=== PATIENT | female | born 1940 | race Caucasian/White ===

== ENCOUNTER → 2017-04-29 | Outpatient (CLI) | payer MEDICARE ==
[2017-04-29 15:06] LABS: Basophils # (A) 0.1 k/uL (0-0.2); Basophils % (A) 1 %; Eosinophils # (A) 0.3 k/uL (0-0.7); Eosinophils % (A) 4 %; HCT 42.3 % (34.0-46.0); Lymphocytes # (A) 1.3 k/uL (1.0-4.8); Lymphocytes % (A) 16 %; MCH 29.9 pg (25.0-35.0); MCHC 30.8 g/dL (31.0-37.0); Mean Platelet Volume 6.9; Monocytes # (A) 0.6 k/uL (0-1.0); Monocytes % (A) 7 %; Neutrophils # (A) 5.4 k/uL (1.3-7.7); Neutrophils % (A) 70 %; Platelet Count 340 k/uL (150-450); RBC 4.36 m/uL (3.80-5.40); RDW 12.7 % (11.5-15.5); WBC 7.8 k/uL (3.8-10.6)
[2017-04-29 15:14] LABS: ALT 22 U/L (9-52); AST 21 U/L (14-36); Albumin 4.1 g/dL (3.5-5.0); Alkaline Phosphatase 106 U/L (38-126); Anion Gap 10 mmol/L; Blood Urea Nitrogen 17 mg/dL (7-17); Calcium 9.5 mg/dL (8.4-10.2); Carbon Dioxide 29 mmol/L (22-30); Chloride 100 mmol/L (98-107); Glucose 97 mg/dL (74-99); Potassium 4.7 mmol/L (3.5-5.1); Sodium 139 mmol/L (137-145); Total Bilirubin 0.5 mg/dL (0.2-1.3)
== END | disposition home or self-care (01) ==
LOC: LABWHC1 13:51
PROVIDERS: ATTEND Internal Medicine
DX: R53.83 Other fatigue (principal); R53.1 Weakness
CPT/HCPCS: 36415; 80053; 84439; 84443; 85025

== ENCOUNTER → 2017-07-15 | Outpatient (CLI) | payer MEDICARE ==
--- NOTE | 2017-07-15 14:37 | US ---
EXAMINATION TYPE: US kidneys/renal and bladder DATE OF EXAM: 07/15/2017 COMPARISON: NONE CLINICAL HISTORY: R31.9 Hematuria. lt flank pain EXAM MEASUREMENTS: Right Kidney: 9.1 x 4.4 x 5.8 cm Left Kidney: 9.2 x 5.5 x 6.3 cm Exam limited by bowel gas. Right Kidney: No hydronephrosis, no masses seen laterally. Left Kidney: There may be some mild separation of the renal pelvis, no stones bilaterally. Bladder: wnl Bilateral Jets seen: Yes No nephrolithiasis is seen. No masses are identified. The urinary bladder is anechoic. Bilateral ureteral jets are seen. Cortical medullary differentiation is maintained. IMPRESSION: Question some mild pelvic caliectasis on the left.
== END | disposition home or self-care (01) ==
LOC: RADUSWWP 13:34
PROVIDERS: ATTEND Internal Medicine Critical Care Medicine
DX: R31.9 Hematuria, unspecified (principal)
CPT/HCPCS: 76770

== ENCOUNTER → 2017-08-19 | Outpatient (CLI) | payer MEDICARE ==
--- NOTE | 2017-08-19 10:58 | US ---
EXAMINATION TYPE: US venous doppler duplex LE LT DATE OF EXAM: 08/19/2017 10:13 AM COMPARISON: NONE CLINICAL HISTORY: 77-year-old female M79.605 Pain in lower limb. SIDE PERFORMED: Left TECHNIQUE: The lower extremity deep venous system is examined utilizing real time linear array sonog analisa with graded compression, doppler sonography and color-flow sonography. FINDINGS: VESSELS IMAGED: External Iliac Vein (EIV) Common Femoral Vein Deep Femoral Vein Greater Saphenous Vein * Femoral Vein Popliteal Vein Proximal Calf Veins (* superficial vessels) Left Leg: Negative for DVT IMPRESSION: No evidence for DVT within the left lower extremity imaged from the groin to the upper calf. Preliminary results called to ASHU Graham at 10:25
== END | disposition home or self-care (01) ==
LOC: RADUSWWP 09:47
PROVIDERS: ATTEND Family Medicine
DX: M79.605 Pain in left leg (principal)

== ENCOUNTER → 2018-08-26 | Outpatient (CLI) | payer MEDICARE ==
[2018-08-26 16:21] LABS: Protein, Total 6.3 g/dL (6.2-8.2)
[2018-08-26 16:47] LABS: African American GFR (CKD) 94.8 (60.0-200.0); Anion Gap 8.4 mmol/L (4.00-12.00); BUN/Creat Ratio 24.29 Ratio (12.00-20.00); C Reactive Protein 0.6 mg/dL (0.0-0.8); Calcium 9.4 mg/dL (8.7-10.3); Carbon Dioxide 28.6 mmol/L (21.6-31.8); Potassium 4.9 mmol/L (3.5-5.5)
[2018-08-26 17:51] LABS: Hemoglobin A1C 5.5 % (4.0-6.0)
[2018-08-28 09:55] LABS: Albumin 3.65 g/dL (3.80-4.90); Gamma Globulin 0.74 g/dL (0.70-1.50)
== END | disposition home or self-care (01) ==
LOC: LABWHC1 09:21
PROVIDERS: ATTEND Psychiatry & Neurology Neurology
DX: M35.00 Sjogren syndrome, unspecified (principal); E87.6 Hypokalemia; G62.9 Polyneuropathy, unspecified; R53.1 Weakness
CPT/HCPCS: 36415; 80048; 82550; 82607; 83036; 84165; 85652; 86140

== ENCOUNTER → 2018-12-29 | Outpatient (CLI) | payer MEDICARE | END | disposition home or self-care (01) | LOC: CPPFTMAIN 11:49 | PROVIDERS: ATTEND Internal Medicine Critical Care Medicine | DX: J45.909 Unspecified asthma, uncomplicated (principal) | CPT/HCPCS: 94060; 94726; 94729 ==

== ENCOUNTER 2019-02-02 09:28 | Emergency (ER) | payer MEDICARE ==
[2019-02-02 09:41] VITALS: RESP 18; TEMP 98
[2019-02-02] MEDS ORDERED: MECLIZINE 12.5 MG TAB PO STA (10:15)
[2019-02-02] MEDS ORDERED: SODIUM CHLORIDE 0.9% 1,000 ML IV STA (10:15)
[2019-02-02] MEDS ORDERED: METOCLOPRAMIDE 5 MG/ML 2 ML VIAL IVP STA (10:16)
--- NOTE | 2019-02-02 10:25 | ED ---
Dizziness HPI - General Chief Complaint: Dizziness Stated Complaint: dizziness Time Seen by Provider: 02/02/19 09:51 Source: patient, RN notes reviewed Mode of arrival: ambulatory Limitations: no limitations - History of Present Illness Initial Comments: 78-year-old female presents emergency Department with chief complaint of abdominal pain, dizziness. She states this has been ongoing for a while. Patient states that she presents sick is a dizziness worsen. She does state she feels more lightheaded feels that she didn't pass out but states it is worse with movement. Patient denies any current chest pain or shortness breath she states that she's been very constipated and this is her issue she states she had a little more dizzy after she cannot have bowel movement. She has been taking senna at home for constipation. No fevers or chills no dysuria no hematuria no focal weakness. States she was started on Ambien approximate one month ago. - Related Data Home Medications Medication Instructions Recorded Confirmed ALPRAZolam [Xanax] 0.5 mg PO TID PRN 01/06/15 02/02/19 Albuterol Sulfate [Ventolin HFA] 2 puff INHALATION RT-QID PRN 02/02/19 02/02/19 Budesonide/Formoterol Fumarate 2 puff INHALATION RT-BID 02/02/19 02/02/19 [Symbicort 160-4.5 Mcg Inhaler] Latanoprost Ophth [Xalatan 0.005%] 1 drop RIGHT EYE HS 02/02/19 02/02/19 Montelukast [Singulair] 10 mg PO HS 02/02/19 02/02/19 Propylene Glycol/Peg 400/Pf 1 drop BOTH EYES TID 02/02/19 02/02/19 [Systane 0.3-0.4% Eye Drops] Sennosides [Senna] 8.6 mg PO HS 02/02/19 02/02/19 Vit C/E/Zn/Coppr/Lutein/Zeaxan 1 cap PO BID 02/02/19 02/02/19 [Preservision Areds 2 Softgel] Zolpidem Tartrate [Zolpidem 12.5 mg PO HS 02/02/19 02/02/19 Tartrate ER] buPROPion HCL [Wellbutrin SR] 150 mg PO DAILY 02/02/19 02/02/19 Previous Rx's Medication Instructions Recorded Meclizine [Antivert] 25 mg PO TID PRN #15 tab 02/02/19 Allergies Allergy/AdvReac Type Severity Reaction Status Date / Time egg Allergy Anaphylaxis Verified 02/02/19 12:41 Review of Systems ROS Statement: Those systems with pertinent positive or pertinent negative responses have been documented in the HPI. ROS Other: All systems not noted in ROS Statement are negative. Past Medical History Past Medical History: Asthma, COPD History of Any Multi-Drug Resistant Organisms: None Reported Past Surgical History: Orthopedic Surgery Past Psychological History: No Psychological Hx Reported Smoking Status: Never smoker Past Alcohol Use History: Occasional Past Drug Use History: None Reported General Exam Limitations: no limitations General appearance: alert, in no apparent distress Head exam: Present: atraumatic, normocephalic, normal inspection Eye exam: Present: normal appearance, PERRL, EOMI. Absent: scleral icterus, conjunctival injection, periorbital swelling ENT exam: Present: normal exam, normal oropharynx, mucous membranes moist, TM's normal bilaterally Neck exam: Present: normal inspection, full ROM. Absent: tenderness, meningismus, lymphadenopathy Respiratory exam: Present: normal lung sounds bilaterally. Absent: respiratory distress, wheezes, rales, rhonchi, stridor Cardiovascular Exam: Present: regular rate, normal rhythm, normal heart sounds. Absent: systolic murmur, diastolic murmur, rubs, gallop, clicks GI/Abdominal exam: Present: soft, tenderness (Mild diffuse), normal bowel sounds. Absent: distended, guarding, rebound, rigid Neurological exam: Present: alert, oriented X3, CN II-XII intact, reflexes normal. Absent: motor sensory deficit Skin exam: Present: warm, dry, intact, normal color. Absent: rash Course Vital Signs 02/02/19 02/02/19 02/02/19 09:37 10:51 12:31 Temperature 98 F Pulse Rate 75 81 92 Respiratory 18 18 18 Rate Blood Pressure 154/79 167/72 149/85 O2 Sat by Pulse 98 96 99 Oximetry - Reevaluation(s) Reevaluation #1: 02/02/19 12:52 Patient updated on results, patient states she feels improved. Patient will be discharged. Medical Decision Making - Medical Decision Making Labs are unremarkable, EKG unremarkable. CT of the brain does not show an acute abnormality. Patient's in's is has improved. This may be related to mild dehydration versus mild vertigo. Patient does have moderate constipation x-ray patient will be discharged advised to use [id number] enema or magnesium citrate. - Lab Data Result diagrams: 02/02/19 10:40 02/02/19 10:40 Lab Results 02/02/19 02/02/19 02/02/19 Range/Units 10:40 10:40 10:40 WBC 7.7 (3.8-10.6) k/uL RBC 4.21 (3.80-5.40) m/uL Hgb 13.1 (11.4-16.0) gm/dL Hct 40.4 (34.0-46.0) % MCV 96.1 (80.0-100.0) fL MCH 31.2 (25.0-35.0) pg MCHC 32.4 (31.0-37.0) g/dL RDW 12.6 (11.5-15.5) % Plt Count 221 (150-450) k/uL Neutrophils % 73 % Lymphocytes % 16 % Monocytes % 6 % Eosinophils % 4 % Basophils % 0 % Neutrophils # 5.6 (1.3-7.7) k/uL Lymphocytes # 1.2 (1.0-4.8) k/uL Monocytes # 0.5 (0-1.0) k/uL Eosinophils # 0.3 (0-0.7) k/uL Basophils # 0.0 (0-0.2) k/uL Sodium 141 (137-145) mmol/L Potassium 4.2 (3.5-5.1) mmol/L Chloride 108 H (98-107) mmol/L Carbon Dioxide 27 (22-30) mmol/L Anion Gap 6 mmol/L BUN 15 (7-17) mg/dL Creatinine 0.65 (0.52-1.04) mg/dL Est GFR (CKD-EPI)AfAm >90 (>60 ml/min/1.73 sqM) Est GFR (CKD-EPI)NonAf 84 (>60 ml/min/1.73 sqM) Glucose 88 (74-99) mg/dL Calcium 9.3 (8.4-10.2) mg/dL Total Bilirubin 0.5 (0.2-1.3) mg/dL AST 18 (14-36) U/L ALT 19 (9-52) U/L Alkaline Phosphatase 86 (38-126) U/L Troponin I <0.012 (0.000-0.034) ng/mL Total Protein 6.5 (6.3-8.2) g/dL Albumin 3.9 (3.5-5.0) g/dL Urine Color Urine Appearance (Clear) Urine pH (5.0-8.0) Ur Specific [place] (1.001-1.035) Urine Protein (Negative) Urine Glucose (UA) (Negative) Urine Ketones (Negative) Urine Blood (Negative) Urine Nitrite (Negative) Urine Bilirubin (Negative) Urine Urobilinogen (<2.0) mg/dL Ur Leukocyte Esterase (Negative) Urine RBC (0-5) /hpf Ur Squamous Epith Cells (0-4) /hpf Urine Mucus (None) /hpf 02/02/19 Range/Units 12:30 WBC (3.8-10.6) k/uL RBC (3.80-5.40) m/uL Hgb (11.4-16.0) gm/dL Hct (34.0-46.0) % MCV (80.0-100.0) fL MCH (25.0-35.0) pg MCHC (31.0-37.0) g/dL RDW (11.5-15.5) % Plt Count (150-450) k/uL Neutrophils % % Lymphocytes % % Monocytes % % Eosinophils % % Basophils % % Neutrophils # (1.3-7.7) k/uL Lymphocytes # (1.0-4.8) k/uL Monocytes # (0-1.0) k/uL Eosinophils # (0-0.7) k/uL Basophils # (0-0.2) k/uL Sodium (137-145) mmol/L Potassium (3.5-5.1) mmol/L Chloride (98-107) mmol/L Carbon Dioxide (22-30) mmol/L Anion Gap mmol/L BUN (7-17) mg/dL Creatinine (0.52-1.04) mg/dL Est GFR (CKD-EPI)AfAm (>60 ml/min/1.73 sqM) Est GFR (CKD-EPI)NonAf (>60 ml/min/1.73 sqM) Glucose (74-99) mg/dL Calcium (8.4-10.2) mg/dL Total Bilirubin (0.2-1.3) mg/dL AST (14-36) U/L ALT (9-52) U/L Alkaline Phosphatase (38-126) U/L Troponin I (0.000-0.034) ng/mL Total Protein (6.3-8.2) g/dL Albumin (3.5-5.0) g/dL Urine Color Light Yellow Urine Appearance Clear (Clear) Urine pH 6.0 (5.0-8.0) Ur Specific [place] 1.005 (1.001-1.035) Urine Protein Negative (Negative) Urine Glucose (UA) Negative (Negative) Urine Ketones Trace H (Negative) Urine Blood Trace H (Negative) Urine Nitrite Negative (Negative) Urine Bilirubin Negative (Negative) Urine Urobilinogen <2.0 (<2.0) mg/dL Ur Leukocyte Esterase Negative (Negative) Urine RBC 1 (0-5) /hpf Ur Squamous Epith Cells <1 (0-4) /hpf Urine Mucus Rare H (None) /hpf Disposition Clinical Impression: Dizziness, Constipation Disposition: HOME SELF-CARE Condition: Stable Instructions (If sedation given, give patient instructions): Dizziness (ED) Additional Instructions: Please return to the Emergency Department if symptoms worsen or any other concerns. Prescriptions: Meclizine [Antivert] 25 mg PO TID PRN #15 tab PRN Reason: Vertigo Is patient prescribed a controlled substance at d/c from ED?: No Referrals: Raheel Renee DO [Primary Care Provider] - 1-2 days Time of Disposition: 12:54
[2019-02-02 11:03] LABS: Basophils % (A) 0 %; Eosinophils # (A) 0.3 k/uL (0-0.7); Eosinophils % (A) 4 %; HCT 40.4 % (34.0-46.0); HGB 13.1 gm/dL (11.4-16.0); Lymphocytes # (A) 1.2 k/uL (1.0-4.8); Lymphocytes % (A) 16 %; MCH 31.2 pg (25.0-35.0); MCHC 32.4 g/dL (31.0-37.0); MCV 96.1 fL (80.0-100.0); Mean Platelet Volume 6.1; Monocytes # (A) 0.5 k/uL (0-1.0); Monocytes % (A) 6 %; Neutrophils # (A) 5.6 k/uL (1.3-7.7); Neutrophils % (A) 73 %; Platelet Count 221 k/uL (150-450); RBC 4.21 m/uL (3.80-5.40); RDW 12.6 % (11.5-15.5); WBC 7.7 k/uL (3.8-10.6)
[2019-02-02 11:12] LABS: ALT 19 U/L (9-52); AST 18 U/L (14-36); African American GFR (CKD) >90 (>60 ml/min/1.73 sqM); Albumin 3.9 g/dL (3.5-5.0); Alkaline Phosphatase 86 U/L (38-126); Anion Gap 6 mmol/L; Blood Urea Nitrogen 15 mg/dL (7-17); Calcium 9.3 mg/dL (8.4-10.2); Carbon Dioxide 27 mmol/L (22-30); Chloride 108 mmol/L (98-107); Glucose 88 mg/dL (74-99); Non-African American GFR(CKD) 84 (>60 ml/min/1.73 sqM); Potassium 4.2 mmol/L (3.5-5.1); Sodium 141 mmol/L (137-145); Total Bilirubin 0.5 mg/dL (0.2-1.3); Total Protein 6.5 g/dL (6.3-8.2)
--- NOTE | 2019-02-02 11:19 | CT ---
EXAMINATION TYPE: CT brain wo con DATE OF EXAM: 02/02/2019 HISTORY: Dizziness. CT DLP: 1099.4 mGycm. Automated Exposure Control for Dose Reduction was Utilized. TECHNIQUE: CT scan of the head is performed without contrast. COMPARISON: None. FINDINGS: There is no acute intracranial hemorrhage or midline shift identified. There is diffuse v entricular and sulcal prominence consistent with diffuse age-related cerebral atrophy. There is low- attenuation in the periventricular white matter consistent with chronic small vessel ischemic change. The globes are intact and the visualized sinuses are clear. Nasal septum slightly deviated to righ t of midline. No suspicious opacification mastoid air cells. IMPRESSION: No acute intracranial hemorrhage or midline shift. There is mild diffuse age-related ce rebral atrophy and mild to moderate chronic small vessel ischemic change noted.
--- NOTE | 2019-02-02 11:20 | XR ---
EXAMINATION TYPE: XR KUB DATE OF EXAM: 02/02/2019 11:12 AM CLINICAL HISTORY: Constipation and pain. TECHNIQUE: Two Upright KUB images of the abdomen are obtained. COMPARISON: None. FINDINGS: Scattered gas is seen in non-distended stomach and small bowel loops. Gas there is seen in non-distended colon. Few right lower quadrant air-fluid levels are seen which is nonspecific. There i s no visceromegaly, pneumoperitoneum, or abnormal calcification appreciated. The lung bases are clear . Dextroconvex scoliosis centered at L3-L4 level. Fairly moderate axial joint space loss both hips. IMPRESSION: Overall nonspecific strongly favor nonobstructive bowel gas pattern.
[2019-02-02 12:31] VITALS: BP 149/85; PULSE 92
[2019-02-02 12:42] LABS: Appearance,Urine Clear (Clear); Bilirubin,Urine Negative (Negative); Blood,Urine Trace (Negative); Color,Urine Light Yellow; Glucose,Urine (UA) Negative (Negative); Ketones,Urine Trace (Negative); Leukocyte Esterase,Urine Negative (Negative); Mucus,Urine Rare /hpf; Nitrite,Urine Negative (Negative); Protein,Urine Negative (Negative); RBC,Urine 1 /hpf (0-5); Specific Gravity,Urine 1.005 (1.001-1.035); Squamous Epithelial Cell,Urine <1 /hpf (0-4); Urobilinogen,Urine <2.0 mg/dL (<2.0)
== END 2019-02-02 13:05 | disposition home or self-care (01) ==
LOC: EC 09:28
DX: K59.00 Constipation, unspecified (principal); R42 Dizziness and giddiness; J44.9 Chronic obstructive pulmonary disease, unspecified; Z79.51 Long term (current) use of inhaled steroids; Z79.899 Other long term (current) drug therapy; Z91.012 Allergy to eggs
CPT/HCPCS: 36415; 93005; 80053; 84484; 85025; 81001; 74018; 70450; 99284; 96374; 96361; J2765

== ENCOUNTER → 2019-10-08 | Outpatient (CLI) | payer MEDICARE, BC ==
[2019-10-08 10:24] LABS: Basophils # (A) 0.1 k/uL (0-0.2); Basophils % (A) 1 %; Eosinophils # (A) 0.4 k/uL (0-0.7); Eosinophils % (A) 7 %; HCT 41.5 % (34.0-46.0); HGB 12.9 gm/dL (11.4-16.0); Hypochromasia Slight; Lymphocytes # (A) 1.1 k/uL (1.0-4.8); Lymphocytes % (A) 21 %; MCH 31.1 pg (25.0-35.0); MCHC 31.2 g/dL (31.0-37.0); MCV 99.8 fL (80.0-100.0); Mean Platelet Volume 7.3; Monocytes # (A) 0.4 k/uL (0-1.0); Monocytes % (A) 7 %; Neutrophils # (A) 3.1 k/uL (1.3-7.7); Neutrophils % (A) 61 %; Platelet Count 253 k/uL (150-450); RBC 4.16 m/uL (3.80-5.40); RDW 12.5 % (11.5-15.5)
[2019-10-08 16:32] LABS: African American GFR (CKD) 80.1 (60.0-200.0); Albumin 4.2 g/dL (3.80-4.90); Albumin/Globulin Ratio 2.1 (1.60-3.17); Anion Gap 5.7 mmol/L (4.00-12.00); Calcium 9.2 mg/dL (8.7-10.3); Carbon Dioxide 28.3 mmol/L (21.6-31.8); Chol/HDL Ratio 2.29; LDL Cholesterol,Calculated 92.6 mg/dL (0.0-131.0); Non-African American GFR(CKD) 69.1 (60.0-200.0); Potassium 4.5 mmol/L (3.5-5.5); Total Bilirubin 0.5 mg/dL (0.3-1.2); Total Protein 6.2 g/dL (6.2-8.2); VLDL Calculation 10.4 mg/dL (5.00-40.00)
[2019-10-08 17:45] LABS: T4, Free (Free Thyroxine) 0.8 ng/dL (0.80-1.80)
[2019-10-08 18:59] LABS: Hemoglobin A1C 5.2 % (4.0-6.0)
== END | disposition home or self-care (01) ==
LOC: LABWHC1 08:57
PROVIDERS: ATTEND Internal Medicine Critical Care Medicine
DX: Z00.00 Encounter for general adult medical examination without abnormal findings (principal); F41.9 Anxiety disorder, unspecified; J45.909 Unspecified asthma, uncomplicated; F34.1 Dysthymic disorder; M35.00 Sjogren syndrome, unspecified; M79.7 Fibromyalgia; K59.00 Constipation, unspecified; G43.909 Migraine, unspecified, not intractable, without status migrainosus
CPT/HCPCS: 36415; 80053; 80061; 82306; 83036; 84439; 84443; 85025

== ENCOUNTER → 2020-01-08 | Day surgery (SDC) | payer BC, MEDICARE ==
[2020-01-06 15:15] VITALS: BMI 23.3
[~2020-01-08] MED LIST: LACTATED RINGERS 1,000 ML IV SCH; LIDOCAINE 1% (10MG/ML) FOR IV START INTRADERMA ONE; LIDOCAINE 1% INJ 10MG/ML (20 ML MDV) ONE; PROPOFOL 10 MG/ML 20 ML VIAL IV ONE
[2020-01-08 10:45] VITALS: TEMP 97.1
--- NOTE | 2020-01-08 11:52 | P.PCN ---
Date of Procedure: 01/08/20 Procedure(s) Performed: BRIEF HISTORY: Patient is a 79-year-old pleasant male scheduled for an elective colonoscopy as a part of evaluation of intermittent rectal bleeding for the last few weeks duration. PROCEDURE PERFORMED: Colonoscopy. PREOPERATIVE DIAGNOSIS: Rectal bleeding.. IV sedation per Anesthesia. PROCEDURE: After informed consent was obtained, the patient, was brought into the endoscopy unit. IV sedation was administered by Anesthesia under continuous monitoring. Digital rectal examination was normal. Initially the Olympus CF-160 flexible video colonoscope was then inserted in the rectum, gradually advanced into the cecum without any difficulty. Careful examination was performed as the scope was gradually being withdrawn. Ileocecal valve and the appendiceal orifice were visualized and appeared normal. Prep was excellent. Mucosa of the cecum, ascending colon, transverse colon, descending colon, sigmoid colon, and rectum appeared normal. Retroflexion was performed in the rectum and grade 2 internal hemorrhoids were seen. The patient tolerated the procedure well. IMPRESSION: Normal-appearing colon from rectum to cecum with no evidence of colorectal neoplasia . Small internal hemorrhoids. RECOMMENDATIONS: Findings of this examination were discussed with the patient as well as her family. She was advised to be a high-fiber diet and take fiber supplements a regular basis and avoid straining and constipation.
[2020-01-08 11:57] VITALS: RESP 17
[2020-01-08 12:24] VITALS: BP 131/78; PULSE 86
== END | disposition home or self-care (01) ==
LOC: ORWHC2ENDO 10:16
PROVIDERS: ATTEND Internal Medicine Gastroenterology
DX: K64.1 Second degree hemorrhoids (principal); K62.5 Hemorrhage of anus and rectum; Z79.899 Other long term (current) drug therapy; J44.9 Chronic obstructive pulmonary disease, unspecified; Z79.51 Long term (current) use of inhaled steroids; Z91.012 Allergy to eggs
CPT/HCPCS: 45378; J2001; J2704

== ENCOUNTER 2021-06-26 09:26 | Inpatient (IN) | payer MEDICARE ==
--- NOTE | 2021-06-26 14:11 | CT ---
EXAMINATION TYPE: CT brain wo con DATE OF EXAM: 06/26/2021 COMPARISON: 02/02/2019 HISTORY: Left-sided weakness CT DLP: 1068.4 mGycm Automated exposure control for dose reduction was used. FINDINGS: There is no acute intracranial hemorrhage or midline shift identified. There is generalized degenerat [place] change. There is low-attenuation in the periventricular white matter consistent with chronic smal l vessel ischemic change. Tiny hypodensity within the left basal ganglia compatible with remote lacun ar infarct. The globes are intact and the visualized sinuses are clear. Nasal septum slightly deviated to right o f midline. No suspicious opacification mastoid air cells. IMPRESSION: NO ACUTE INTRACRANIAL HEMORRHAGE OR MASS EFFECT.
[2021-06-26 14:12] LABS: Albumin 3.9 g/dL (3.5-5.0); Calcium 8.9 mg/dL (8.4-10.2); Magnesium 1.9 mg/dL (1.6-2.3); Potassium 4.5 mmol/L (3.5-5.1); Total Bilirubin 0.7 mg/dL (0.2-1.3); Total Protein 6.8 g/dL (6.3-8.2)
--- NOTE | 2021-06-26 14:12 | CT ---
EXAMINATION TYPE: CT angio head neck DATE OF EXAM: 06/26/2021 COMPARISON: None HISTORY: Lt sided weakness CONTRAST: Performed with IV Contrast, patient injected with 100 mL of Isovue 300. Combination Contrast CTA cervical carotids and [place] CTA cervical carotids with 3-D recons truction Contrast CTA of the cervical carotids was performed 3-D reconstruction imaging obtained at a separate workstation. Right carotid system: Mild plaque is seen of the right common carotid artery. There is mild plaque a lso noted at the carotid bulb and proximal ICA. No significant diameter reduction. ECA is patent. Right vertebral artery appears unremarkable. Left carotid system: Mild plaque is seen of the left common carotid artery. There is mild plaque als o noted at the carotid bulb and proximal ICA. No significant diameter reduction. ECA is patent. Lef t vertebral artery appears unremarkable. IMPRESSION: 1. No significant diameter reduction to account for the patient's symptoms. CTA [place] with 3-D reconstruction Contrast CTA of the [place] was performed 3-D reconstruction imaging obtained at a separate workstation. Vertebrobasilar system as well as intracranial portions of the internal carotid arteries and their [place] tributaries are patent. I do not see evidence for sizable aneurysm or vascular malformation. Pl ease note MRI provides greater sensitivity and specificity. Visualized brain appears grossly unremar kable. IMPRESSION: 1. No significant abnormality. NASCET criteria was used in interpretation of this exam?
[2021-06-26 14:33] LABS: Basophils # (A) 0.1 k/uL (0-0.2); Basophils % (A) 1 %; Eosinophils # (A) 0.4 k/uL (0-0.7); Eosinophils % (A) 5 %; HCT 39.9 % (34.0-46.0); HGB 13.3 gm/dL (11.4-16.0); Lymphocytes # (A) 1.1 k/uL (1.0-4.8); Lymphocytes % (A) 15 %; MCH 32.9 pg (25.0-35.0); MCHC 33.2 g/dL (31.0-37.0); Mean Platelet Volume 7.3; Monocytes # (A) 0.5 k/uL (0-1.0); Monocytes % (A) 7 %; Neutrophils # (A) 5.1 k/uL (1.3-7.7); Neutrophils % (A) 70 %; Platelet Count 236 k/uL (150-450); RBC 4.03 m/uL (3.80-5.40); RDW 12.5 % (11.5-15.5); WBC 7.3 k/uL (3.8-10.6)
--- NOTE | 2021-06-26 14:48 | ED ---
General Adult HPI - General Time Seen by Provider: 06/26/21 14:44 - History of Present Illness Initial comments: Patient was initially seen and evaluated via paper chart due to unexpected EMR down time. Please see paper chart for further details regards to the history and physical. Briefly, patient is a 80-year-old female presents to the emergency department with strokelike symptoms started yesterday. Her symptoms are left-sided facial paresthesias and left lower extremity weakness. Patient is outside the alteplase window given that her symptoms began yesterday. Her NIH score is 24 lower extremity drift and slight facial sensory abnormalities. CVA workup was initiated. - Related Data Home Medications Medication Instructions Recorded Confirmed ALPRAZolam [Xanax] 0.5 mg PO TID PRN 01/06/15 01/06/20 Albuterol Sulfate [Ventolin HFA] 2 puff INHALATION RT-QID PRN 02/02/19 01/06/20 Budesonide/Formoterol Fumarate 2 puff INHALATION RT-BID 02/02/19 01/06/20 [Symbicort 160-4.5 Mcg Inhaler] Montelukast [Singulair] 10 mg PO HS 02/02/19 01/06/20 Propylene Glycol/Peg 400/Pf 1 drop BOTH EYES TID 02/02/19 01/06/20 [Systane 0.3-0.4% Eye Drops] Sennosides [Senna] 8.6 mg PO HS 02/02/19 01/06/20 Vit C/E/Zn/Coppr/Lutein/Zeaxan 1 cap PO BID 02/02/19 01/06/20 [Preservision Areds 2 Softgel] Zolpidem Tartrate [Zolpidem 12.5 mg PO HS 02/02/19 01/06/20 Tartrate ER] buPROPion HCL [Wellbutrin SR] 150 mg PO DAILY 02/02/19 01/06/20 Latanoprostene Bunod [Vyzulta] 5 ml RIGHT EYE DAILY 01/06/20 01/06/20 Previous Rx's Medication Instructions Recorded Meclizine [Antivert] 25 mg PO TID PRN #15 tab 02/02/19 Allergies Allergy/AdvReac Type Severity Reaction Status Date / Time egg Allergy Anaphylaxis Verified 06/26/21 15:09 Review of Systems ROS Statement: Those systems with pertinent positive or pertinent negative responses have been documented in the HPI. ROS Other: All systems not noted in ROS Statement are negative. Past Medical History Past Medical History: Asthma, COPD, Eye Disorder Additional Past Medical History / Comment(s): INCREASED PRESSURE RT EYE. HAD SOME RECTAL BLEEDING ABOUT 1 MONTH AGO, CHRONIC CONSTIPATON History of Any Multi-Drug Resistant Organisms: None Reported Past Surgical History: Orthopedic Surgery Additional Past Surgical History / Comment(s): RT SHOULDER SX. COLONOSCOPY. RT EYE MACULAR FOLD SX Past Anesthesia/Blood Transfusion Reactions: No Reported Reaction Smoking Status: Never smoker - Past Family History Mother Family Medical History: No Reported History Course Vital Signs 06/26/21 15:00 Temperature 98.0 F Pulse Rate 75 Respiratory 20 Rate Blood Pressure 183/87 O2 Sat by Pulse 97 Oximetry Medical Decision Making - Medical Decision Making Laboratory evaluation obtained. CBC, coag panel, metabolic panel is unremarkable. Computed tomography scan of the brain shows no acute processes. CT angiography of the head and neck shows no large vessel occlusion. Patient had a thrombectomy candidate. Patient given aspirin will be admitted with neurology consultation. Patient be admitted to [facility] [facility]. - Lab Data Result diagrams: 06/26/21 10:37 06/26/21 10:37 Lab Results 06/26/21 06/26/21 06/26/21 Range/Units 10:37 10:37 10:37 WBC 7.3 (3.8-10.6) k/uL RBC 4.03 (3.80-5.40) m/uL Hgb 13.3 (11.4-16.0) gm/dL Hct 39.9 (34.0-46.0) % MCV 99.0 (80.0-100.0) fL MCH 32.9 (25.0-35.0) pg MCHC 33.2 (31.0-37.0) g/dL RDW 12.5 (11.5-15.5) % Plt Count 236 (150-450) k/uL MPV 7.3 Neutrophils % 70 % Lymphocytes % 15 % Monocytes % 7 % Eosinophils % 5 % Basophils % 1 % Neutrophils # 5.1 (1.3-7.7) k/uL Lymphocytes # 1.1 (1.0-4.8) k/uL Monocytes # 0.5 (0-1.0) k/uL Eosinophils # 0.4 (0-0.7) k/uL Basophils # 0.1 (0-0.2) k/uL PT 10.9 (9.0-12.0) sec INR 1.0 (<1.2) APTT 23.8 (22.0-30.0) sec Sodium 140 (137-145) mmol/L Potassium 4.5 (3.5-5.1) mmol/L Chloride 108 H (98-107) mmol/L Carbon Dioxide 25 (22-30) mmol/L Anion Gap 7 mmol/L BUN 18 H (7-17) mg/dL Creatinine 0.74 (0.52-1.04) mg/dL Est GFR (CKD-EPI)AfAm 88 (>60 ml/min/1.73 sqM) Est GFR (CKD-EPI)NonAf 76 (>60 ml/min/1.73 sqM) Glucose 103 H (74-99) mg/dL Calcium 8.9 (8.4-10.2) mg/dL Magnesium 1.9 (1.6-2.3) mg/dL Total Bilirubin 0.7 (0.2-1.3) mg/dL AST 28 (14-36) U/L ALT 18 (4-34) U/L Alkaline Phosphatase 86 (38-126) U/L Total Protein 6.8 (6.3-8.2) g/dL Albumin 3.9 (3.5-5.0) g/dL Disposition Clinical Impression: Cerebrovascular accident (CVA) Disposition: ADMITTED IP TO THIS HOSP Condition: Fair Referrals: Raheel Renee DO [Primary Care Provider] - 1-2 days Decision Time: 15:48
[2021-06-26 15:16] LABS: Partial Thromboplastin Time 23.8 sec (22.0-30.0); Prothrombin Time 10.9 sec (9.0-12.0)
[2021-06-26] MEDS ORDERED: ASPIRIN 81 MG PO STA (15:40)
[2021-06-26] MEDS ORDERED: NALOXONE 0.4 MG/ML 1 ML VIAL IV PRN (15:45)
[2021-06-26] MEDS ORDERED: ONDANSETRON 4 MG/2 ML VIAL IVP PRN (15:45)
--- NOTE | 2021-06-26 16:26 | P.CNNES ---
History of Present Illness Consult date: 06/26/21 Requesting physician: Kostas Moeller Reason for Consult: cva History of Present Illness: This is an 80-year-old woman with medical history of who presented emergency department on 06/26/2021 via EMS for left-sided paresthesia and lower extremity weakness. Patient's symptoms began yesterday between 7-8pm. Her symptoms has not resolved. She denies of any other neurological issues. She stated she is not on antiplatelets and not on statin. She denies history of stroke or TIA that she recalls. Denies tobacco use or illicit drug use. Socially drinks alcohol. She resides by herself. Some of the workup in the hospital consisted of: CBC with differential and chemistry panel is unremarkable. PT, INR PTT is withi n normal limits CT of the head is reported as no acute intracranial hemorrhage or mass effect. I personally reviewed the CT of the head and the seems the patient has old lacunar infarct in the left basal ganglia 1 in the external capsule and the other one in the left thalamus. CT angiography of the head and neck is negative. Review of Systems Review of system: The 12 point system was reviewed and apparent positive and negative per HPI. Past Medical History Past Medical History: Asthma, COPD, Eye Disorder Additional Past Medical History / Comment(s): INCREASED PRESSURE RT EYE. HAD SOME RECTAL BLEEDING ABOUT 1 MONTH AGO, CHRONIC CONSTIPATON History of Any Multi-Drug Resistant Organisms: None Reported Past Surgical History: Orthopedic Surgery Additional Past Surgical History / Comment(s): RT SHOULDER SX. COLONOSCOPY. RT EYE MACULAR FOLD SX Past Anesthesia/Blood Transfusion Reactions: No Reported Reaction Smoking Status: Never smoker - Past Family History Mother Family Medical History: No Reported History Medications and Allergies Home Medications Medication Instructions Recorded Confirmed Type ALPRAZolam [Xanax] 0.5 mg PO TID PRN 01/06/15 06/26/21 History Albuterol Sulfate [Ventolin HFA] 2 puff INHALATION RT-QID PRN 02/02/19 06/26/21 History Budesonide/Formoterol Fumarate 2 puff INHALATION RT-BID 02/02/19 06/26/21 History [Symbicort 160-4.5 Mcg Inhaler] Vit C/E/Zn/Coppr/Lutein/Zeaxan 1 cap PO BID 02/02/19 06/26/21 History [Preservision Areds 2 Softgel] Zolpidem Tartrate [Zolpidem 12.5 mg PO HS 02/02/19 06/26/21 History Tartrate ER] Cholecalciferol [Vitamin D3 (25 25 mcg PO DAILY 06/26/21 06/26/21 History Mcg = 1000 Iu)] Latanoprost/Pf [Latanoprost 0.005% 1 drop LEFT EYE HS 06/26/21 06/26/21 History Eye Drop] Multivitamins, Thera [Multivitamin 1 tab PO DAILY 06/26/21 06/26/21 History (formulary)] Vitamin B Complex 1 cap PO DAILY 06/26/21 06/26/21 History buPROPion XL [Wellbutrin XL] 150 mg PO DAILY 06/26/21 06/26/21 History Allergies Allergy/AdvReac Type Severity Reaction Status Date / Time egg Allergy Anaphylaxis Verified 06/26/21 15:09 Physical Examination - Vital Signs Vital Signs: Vital Signs Temp Pulse Resp BP Pulse Ox 06/26/21 15:00 98.0 F 75 20 183/87 97 Intake and Output 06/26/21 06/26/21 06/26/21 06:59 14:59 22:59 Other: Weight 63.049 kg GENERAL: The patient is lying in bed and is not in acute distress. CHEST: The heart rate is regular rate rhythm. No murmurs to auscultation. No carotid bruit bilaterally. LUNG: Clear to auscultation bilaterally no wheezing noted throughout. Not labored breathing. ABDOMEN/GI: Bowel sounds present in all 4 quadrants. No tenderness to palpation throughout. NEUROLOGICAL: Higher mental function: The patient is awake, alert, oriented to self, place and time. Patient is following commands. No aphasia and no neglect. Cranial nerves: The pupils are round, equal and reactive to light and accommodation. Visual tavares are full to confrontation throughout. Extraocular movement is intact no nystagmus is noted. Facial sensation is normal to touch throughout. The facial strength is normal throughout. Hearing is normal bilaterally to hand rub. Tongue is midline and moved [id number] without any difficulty. No dysarthria is noted. Shoulder shrug is normal bilaterally. Motor: Gait is deferred because of patient's weakness. The strength is left lower extremity is 3-4 while upper is 5- (but limitation because of pain from IV line). Otherwise 5 over 5 throughout. Normal tone and bulk. Cerebellum: Normal finger to nose bilaterally. Sensation: Sensation is slightly decrease to touch over the left lepe. Otherwise normal to touch throughout. Reflexes (right/left):1+ throughout. Plantars are downgoing bilaterally. Results - Laboratory Findings CBC and BMP: 06/26/21 10:37 06/26/21 10:37 Abnormal Lab Findings: Abnormal Labs 06/26/21 10:37 Chloride 108 H BUN 18 H Glucose 103 H Assessment and Plan Assessment: Acute paresthesia of left side and weakness of left lower extremity weakness likely due to acute ischemic stroke (on examination has predominate left leg weakness and decrease sensation in lower). No IV TPA since outside the window and the risks outweigh the benefits Old lacunar stroke in the left basal ganglia likely due to small vessel disease Plan: In the ED the patient was given aspirin 325mg once. I started the patient on aspirin 81 mg and I will not start the patient on dual antiplatelet because of her previous history of rectal bleeding in the past. Started the patient on Lipitor 20 mg daily at bedtime Ordered MRI of the brain without Ordered 2-D echo, lipid panel, TSH. Every 4 hours neuro checks Continue cardiac monitoring Consulted PT and OT We'll defer the rest of the medical management to primary team For DVT prophylaxis I start the patient on the subcu heparin every 12 hours The plan is discussed with the patient. Thank you for the consultation. Roly Renee M.D. Neuro-hospitalist Time with Patient: Greater than 30
[2021-06-26] MEDS ORDERED: ALBUTEROL NEBULIZED 2.5 MG/3 ML INHALATION PRN (16:35)
--- NOTE | 2021-06-26 16:36 | P.HPIM ---
History of Present Illness H&P Date: 06/26/21 Chief Complaint: Left sided weakness, numbness 80-year-old woman with medical history of depression, asthma, anxiety, insomnia, glaucoma who follows with Dr. Raheel Renee is her primary care physician presented for evaluation of left-sided numbness, weakness. Patient says that she was in her usual state of health when she went to [facility] chest today, then sometime in the afternoon she started to develope numbness of her face, left upper extremity, left lower leg. Then, earlier this morning her symptoms progress into weakness as well is numbness. She denies ever having a stroke before, denies palpitations, denies fevers, chills, nausea, vomiting, chest pain, syncope, presyncope, cough, dyspnea, abdominal pain, constipation, diarrhea, dysuria, dyschezia. In the emergency room, patient is afebrile, 183/87, heart rate 75, 97% on room air. CBC is unremarkable. Chemistries are unremarkable. LFTs are unremarkable. Coags unremarkable. Patient underwent CT head without contrast which was negative for head bleed. She then underwent CT angiography of the head and neck which did not show any significant reduction in vessel lumen. 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 HAD SOME RECTAL BLEEDING ABOUT 1 MONTH AGO, CHRONIC CONSTIPATON History of Any Multi-Drug Resistant Organisms: None Reported Past Surgical History: Orthopedic Surgery Additional Past Surgical History / Comment(s): RT SHOULDER SX. COLONOSCOPY. RT EYE MACULAR FOLD SX Past Anesthesia/Blood Transfusion Reactions: No Reported Reaction Smoking Status: Never smoker - Past Family History Mother Family Medical History: No Reported History Medications and Allergies Home Medications Medication Instructions Recorded Confirmed Type ALPRAZolam [Xanax] 0.5 mg PO TID PRN 01/06/15 06/26/21 History Albuterol Sulfate [Ventolin HFA] 2 puff INHALATION RT-QID PRN 02/02/19 06/26/21 History Budesonide/Formoterol Fumarate 2 puff INHALATION RT-BID 02/02/19 06/26/21 History [Symbicort 160-4.5 Mcg Inhaler] Vit C/E/Zn/Coppr/Lutein/Zeaxan 1 cap PO BID 02/02/19 06/26/21 History [Preservision Areds 2 Softgel] Zolpidem Tartrate [Zolpidem 12.5 mg PO HS 02/02/19 06/26/21 History Tartrate ER] Cholecalciferol [Vitamin D3 (25 25 mcg PO DAILY 06/26/21 06/26/21 History Mcg = 1000 Iu)] Latanoprost/Pf [Latanoprost 0.005% 1 drop LEFT EYE HS 06/26/21 06/26/21 History Eye Drop] Multivitamins, Thera [Multivitamin 1 tab PO DAILY 06/26/21 06/26/21 History (formulary)] Vitamin B Complex 1 cap PO DAILY 06/26/21 06/26/21 History buPROPion XL [Wellbutrin XL] 150 mg PO DAILY 06/26/21 06/26/21 History Allergies Allergy/AdvReac Type Severity Reaction Status Date / Time egg Allergy Anaphylaxis Verified 06/26/21 15:09 Physical Exam Osteopathic Statement: *. No significant issues noted on an osteopathic struct ural exam other than those noted in the History and Physical/Consult. Vitals: Vital Signs Temp Pulse Resp BP Pulse Ox 06/26/21 15:00 98.0 F 75 20 183/87 97 Intake and Output 06/26/21 06/26/21 06/26/21 06:59 14:59 22:59 Other: Weight 63.049 kg Results CBC & Chem 7: 06/26/21 10:37 06/26/21 10:37 Labs: Abnormal Lab Results - Last 24 Hours (Table) 06/26/21 Range/Units 10:37 Chloride 108 H (98-107) mmol/L BUN 18 H (7-17) mg/dL Glucose 103 H (74-99) mg/dL
[2021-06-26 18:08] LABS: T4, Free (Free Thyroxine) 0.94 ng/dL (0.78-2.19)
[2021-06-26] MEDS: SODIUM CHLORIDE 0.9% 1,000 ML IV SCH (18:29)
[2021-06-26] MEDS: SYMBICORT 160-4.5 MCG INHALER INHALATION SCH (20:41)
[2021-06-26] MEDS: ALPRAZolam 0.5 MG TAB PO PRN (22:19)
[2021-06-26] MEDS: ZOLPIDEM 5 MG TAB PO SCH (22:19)
[2021-06-26] MEDS: ATORVASTATIN 20 MG TAB PO SCH (22:19)
[2021-06-26] MEDS: HEPARIN SODIUM,PORCINE/PF 5,000 UNIT/0.5 ML SYRINGE SQ SCH (22:22)
[2021-06-26] MEDS: VIT A,C & E-LUTEIN-MINERALS 1 EACH TAB PO SCH (22:25)
[2021-06-26] MEDS: LATANOPROST 0.005% OPHTH DROPS 2.5 ML BTL LEFT EYE SCH (22:25)
[2021-06-26 23:33] LABS: Chol/HDL Ratio 2.13 Ratio; LDL Cholesterol,Calculated 91.6 mg/dL (0.0-131.0); VLDL Calculation 13.46 mg/dL (5.00-40.00)
[2021-06-27] MEDS: SYMBICORT 160-4.5 MCG INHALER INHALATION SCH ×2 (07:31→19:37)
[2021-06-27] MEDS ORDERED: NON FORMULARY DRUG (Vitamin B Complex [Vitamin B Complex] 1 EACH Capsule) PO SCH (09:00)
[2021-06-27] MEDS: MULTIVITAMINS, THERA 1 EACH TAB PO SCH (11:29)
[2021-06-27] MEDS: HEPARIN SODIUM,PORCINE/PF 5,000 UNIT/0.5 ML SYRINGE SQ SCH ×2 (11:30→20:03)
[2021-06-27] MEDS: CHOLECALCIFEROL 25 MCG (1000 IU) TABLET PO SCH (11:30)
[2021-06-27] MEDS: ASPIRIN 81 MG PO SCH (11:30)
[2021-06-27] MEDS: ALPRAZolam 0.5 MG TAB PO PRN ×2 (11:42→20:03)
[2021-06-27] MEDS: buPROPion XL 150 MG TAB.ER.24H PO SCH (11:57)
[2021-06-27] MEDS: ACETAMINOPHEN TAB 325 MG TAB PO PRN ×2 (13:43→19:50)
--- NOTE | 2021-06-27 14:58 | P.PN ---
Subjective Progress Note Date: 06/27/21 Pt is doing well overall. C/o headache, trouble sleeping. MRI pending. 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, 3 minus out of 5 strength lower extremity hip flexor on the left Psych: cooperative, euthymic mood Assessment/plan: Acute CVA -Admit to inpatient, telemetry -Neurology consult -MRI of the brain is pending -Aspirin, statin -Neuro to consider adding plavix -Echo was pending -TSH, A1c, lipid panel reviewed Depression Asthma Anxiety Insomnia Glaucoma -Home medications reviewed and reconciled Patient is a full code Objective - Vital Signs Vital signs: Vital Signs Temp 97.8 F 06/27/21 07:50 Pulse 85 06/27/21 07:50 Resp 18 06/27/21 07:50 BP 137/56 06/27/21 07:50 Pulse Ox 97 06/27/21 07:50 Intake & Output 06/26/21 06/27/21 06/27/21 18:59 06:59 18:59 Weight 63.049 kg - Labs CBC & Chem 7: 06/26/21 10:37 06/26/21 10:37 Labs: Abnormal Lab Results - Last 24 Hours (Table) 06/26/21 Range/Units 10:37 HDL Cholesterol 92.90 H (40.00-60.00) mg/dL TSH 0.058 L (0.465-4.680) mIU/L
--- NOTE | 2021-06-27 15:43 | P.PN ---
Subjective Progress Note Date: 06/27/21 The patient is seen at bedside and feels about the same. Continues to have weakness on left leg. Denies any worsening of her condition. She stated she had a rectal bleeding about 1 year ago but had colonoscopy and was normal. Objective - Vital Signs Vital signs: Vital Signs Temp 97.8 F 06/27/21 07:50 Pulse 85 06/27/21 07:50 Resp 18 06/27/21 07:50 BP 137/56 06/27/21 07:50 Pulse Ox 97 06/27/21 07:50 Intake & Output 06/26/21 06/27/21 06/27/21 18:59 06:59 18:59 Weight 63.049 kg - Exam GENERAL: The patient is lying in bed and is not in acute distress. NEUROLOGICAL: Higher mental function: The patient is awake, alert, oriented to self, place and time. Patient is following commands. No aphasia and no neglect. Cranial nerves: The pupils are round, equal and reactive to light and accommodation. Visual tavares are full to confrontation throughout. Extraocular movement is intact no nystagmus is noted. Facial sensation is normal to touch throughout. The facial strength is normal throughout. Hearing is normal bilaterally to hand rub. Tongue is midline and moved [id number] without any difficulty. No dysarthria is noted. Shoulder shrug is normal bilaterally. Motor: Gait is deferred because of patient's weakness. The strength is left lower extremity is 3-4 while upper is 5- (but limitation because of pain from IV line). Otherwise 5 over 5 throughout. Normal tone and bulk. Cerebellum: Normal finger to nose bilaterally. Sensation: Sensation is slightly decrease to touch over the left lepe. Otherwise normal to touch throughout. Reflexes (right/left):1+ throughout. Plantars are downgoing bilaterally. WORK-UP: HbA1c: 5.4 Lipid panel: TG 67, Cholestrol 198, LDL 91 and HDL 92 TSH: 0.058 but free T4: 0.94 CT of the head is reported as no acute intracranial hemorrhage or mass effect. I personally reviewed the CT of the head and the seems the patient has old lacunar infarct in the left basal ganglia 1 in the external capsule and the other one in the left thalamus. CT angiography of the head and neck is negative. - Labs CBC & Chem 7: 06/26/21 10:37 06/26/21 10:37 Labs: Abnormal Lab Results - Last 24 Hours (Table) 06/26/21 Range/Units 10:37 HDL Cholesterol 92.90 H (40.00-60.00) mg/dL TSH 0.058 L (0.465-4.680) mIU/L Assessment and Plan Assessment: Acute paresthesia of left side and weakness of left lower extremity weakness likely due to acute ischemic stroke (on examination has predominate left leg weakness and decrease sensation in lower). No IV TPA since outside the window and the risks outweigh the benefits Old lacunar stroke in the left basal ganglia likely due to small vessel disease Plan: I started the patient on aspirin 81 mg and I will not start the patient on dual antiplatelet because of her previous history of rectal bleeding in the past. She stated she had a rectal bleeding about 1 year ago but had colonoscopy and was normal. After MRI Brain and depending on result will consider dual antiplatelets and patient is in agreement. Continue Lipitor 20 mg daily at bedtime MRI of the brain without pending. 2-D echo: pending Every 4 hours neuro checks Continue cardiac monitoring Consulted PT and OT We'll defer the rest of the medical management to primary team For DVT prophylaxis subcu heparin every 12 hours The plan is discussed with the patient. Roly Renee M.D. Neuro-hospitalist Time with Patient: Less than 30
[2021-06-27] MEDS: SODIUM CHLORIDE 0.9% 1,000 ML IV SCH (17:48)
[2021-06-27] MEDS: VIT A,C & E-LUTEIN-MINERALS 1 EACH TAB PO SCH ×2 (17:48→20:12)
--- NOTE | 2021-06-27 18:19 | CA ---
Transthoracic Echo Report Name: Tawnya Scott Age: 80 Gender: F : 1940 Exam Date: 06/27/2021 08:53 Exam Location: [facility] Ht (in): 65 Wt (lb): 139 Ordering Physician: Roly Renee MD Attending/Referring Phys: [facility] Aury Hinton RDCS Procedure CPT: Indications: stroke Cardiac Hx: CVA. COPD Technical Quality: Fair Contrast 1: Total Dose (mL): Contrast 2: Total Dose (mL): MEASUREMENTS (Male / Female) Normal Values 2D ECHO LV Diastolic Diameter PLAX 3.9 cm 4.2 - 5.9 / 3.9 - 5.3 cm LV Systolic Diameter PLAX 3.4 cm IVS Diastolic Thickness 1.1 cm 0.6 - 1.0 / 0.6 - 0.9 cm LVPW Diastolic Thickness 1.3 cm 0.6 - 1.0 / 0.6 - 0.9 cm LV Relative Wall Thickness 0.6 LA Systolic Diameter LX 3.4 cm 3.0 - 4.0 / 2.7 - 3.8 cm LA Volume 43.3 cm 18 - 58 / 22 - 52 cm M-MODE Aortic Root Diameter MM 3.3 cm MV E Point Septal Separation 2.2 cm AV Cusp Separation MM 1.0 cm DOPPLER AV Peak Velocity 306.0 cm/s AV Peak Gradient 37.5 mmHg AV Mean Velocity 209.8 cm/s AV Mean Gradient 19.9 mmHg AV Velocity Time Integral 64.4 cm LVOT Peak Velocity 94.2 cm/s LVOT Peak Gradient 3.6 mmHg MV Area PHT 3.2 cm Mitral E Point Velocity 51.3 cm/s Mitral A Point Velocity 103.1 cm/s Mitral E to A Ratio 0.5 MV Deceleration Time 236.5 ms MV E' Velocity 8.1 cm/s Mitral E to MV E' Ratio 6.3 TR Peak Velocity 239.9 cm/s TR Peak Gradient 23.0 mmHg Right Ventricular Systolic Press 28.0 mmHg FINDINGS Left Ventricle Mild LVH, EF 55-60% Right Ventricle Normal right ventricular size and function. Right Atrium Normal right atrial size. Left Atrium Moderate left atrial dilatation. Mitral Valve Mild mitral regurgitation. Aortic Valve Moderate aortic stenosis with a peak gradient of 38 mmHg and a mean gradient of 20 mmHg. Can't exclude possible bicuspid. Tricuspid Valve Mild tricuspid regurgitation. Pulmonic Valve Mild pulmonic regurgitation. Pericardium Normal pericardium. Aorta Aortic root and proximal ascending aorta not well visualized. CONCLUSIONS Normal LV size and systolic function with mild concentric LVH. Mild to moderate aortic stenosis with a mean gradient of 20 mmHg. Aortic valve is not well seen. I cannot comment if it is bicuspid or trileaflet. No pericardial effusion. No significant pulmonary hypertension Previewed by: Dr. Mildred Gil MD (Electronically Signed) Final Date: 27 June 2021 18:18
[2021-06-27] MEDS: ZOLPIDEM 5 MG TAB PO SCH (20:03)
[2021-06-27] MEDS: ATORVASTATIN 20 MG TAB PO SCH (20:03)
[2021-06-27] MEDS: LATANOPROST 0.005% OPHTH DROPS 2.5 ML BTL LEFT EYE SCH (20:04)
[2021-06-28] MEDS: ALPRAZolam 0.5 MG TAB PO PRN ×2 (02:29→12:58)
[2021-06-28] MEDS: SYMBICORT 160-4.5 MCG INHALER INHALATION SCH ×2 (08:19→19:59)
[2021-06-28] MEDS: buPROPion XL 150 MG TAB.ER.24H PO SCH (09:24)
[2021-06-28] MEDS: ASPIRIN 81 MG PO SCH (09:24)
[2021-06-28] MEDS: CHOLECALCIFEROL 25 MCG (1000 IU) TABLET PO SCH (09:24)
[2021-06-28] MEDS: HEPARIN SODIUM,PORCINE/PF 5,000 UNIT/0.5 ML SYRINGE SQ SCH ×2 (09:24→20:31)
[2021-06-28] MEDS: VIT A,C & E-LUTEIN-MINERALS 1 EACH TAB PO SCH ×2 (09:24→20:45)
[2021-06-28] MEDS: MULTIVITAMINS, THERA 1 EACH TAB PO SCH (09:24)
[2021-06-28] MEDS: GABAPENTIN 100 MG CAP PO SCH ×3 (10:17→20:45)
--- NOTE | 2021-06-28 11:12 | P.PN ---
Subjective Progress Note Date: 06/28/21 The patient is seen at bedside continues to have paresthesia over the left side and noticed weakness of also right leg weakness last night. Currently having weakness of both legs. Objective - Vital Signs Vital signs: Vital Signs Temp 98.2 F 06/28/21 08:00 Pulse 76 06/28/21 08:00 Resp 16 06/28/21 08:00 BP 153/76 06/28/21 08:00 Pulse Ox 95 06/28/21 08:00 Intake & Output 06/27/21 06/28/21 06/28/21 18:59 06:59 18:59 Intake Total 270 10 360 Balance 270 10 360 Weight 63.049 kg Intake: IV 10 10 Invasive Line 1 10 10 Oral 260 360 Other: # Voids 1 2 # Bowel Movements 3 - Exam GENERAL: The patient is lying in bed and is in mild acute distress. NEUROLOGICAL: Higher mental function: The patient is awake, alert, oriented to self, place and time. Patient is following commands. No aphasia and no neglect. Cranial nerves: The pupils are round, equal and reactive to light and accommodation. Visual tavares are full to confrontation throughout. Extraocular movement is intact no nystagmus is noted. Facial sensation is normal to touch throughout. The facial strength is normal throughout. Tongue is midline and moved [id number] without any difficulty. No dysarthria is noted. Shoulder shrug is normal bilaterally. Motor: Gait is deferred because of patient's weakness. The strength is bilateral lower extremities are 3-4 (worse on left > right )while upper is 5-. Normal tone and bulk. Cerebellum: Normal finger to nose bilaterally. Sensation: Sensation is slightly decrease to touch over the left lepe. Otherwise normal to touch throughout. Reflexes (right/left):1+ throughout. Plantars are downgoing bilaterally. WORK-UP: HbA1c: 5.4 Lipid panel: TG 67, Cholestrol 198, LDL 91 and HDL 92 TSH: 0.058 but free T4: 0.94 CT of the head is reported as no acute intracranial hemorrhage or mass effect. I personally reviewed the CT of the head and the seems the patient has old lacunar infarct in the left basal ganglia 1 in the external capsule and the other one in the left thalamus. CT angiography of the head and neck is negative. 2D echo: Normal LV size and systolic function with mild concentric LVH. Mild to moderate aortic stenosis. Moderate left atrial dilation. - Labs CBC & Chem 7: 06/26/21 10:37 06/26/21 10:37 Assessment and Plan Assessment: Acute paresthesia of left side and weakness of bilateral lower likely due to acute ischemic stroke (on examination has predominate left leg weakness and decrease sensation in lower). No IV TPA since outside the window and the risks outweigh the benefits Old lacunar stroke in the left basal ganglia likely due to small vessel disease Plan: I started the patient on aspirin 81 mg and I will not start the patient on dual antiplatelet because of her previous history of rectal bleeding in the past. She stated she had a rectal bleeding about 1 year ago but had colonoscopy and was normal. After MRI Brain and depending on result will consider dual antiplatelets and patient is in agreement. Continue Lipitor 20 mg daily at bedtime MRI of the brain without pending. Every 4 hours neuro checks Continue cardiac monitoring Consulted PT and OT We'll defer the rest of the medical management to primary team For DVT prophylaxis subcu heparin every 12 hours The plan is discussed with the patient and her nurse. Roly Renee M.D. Neuro-hospitalist Time with Patient: Less than 30
[2021-06-28] MEDS: ACETAMINOPHEN TAB 325 MG TAB PO PRN (12:11)
[2021-06-28] MEDS: SODIUM CHLORIDE 0.9% 1,000 ML IV SCH (14:04)
--- NOTE | 2021-06-28 14:28 | MR ---
EXAMINATION TYPE: MR brain wo con DATE OF EXAM: 06/28/2021 COMPARISON: CT brain 2 days ago HISTORY: Stroke, left leg weakness TECHNIQUE: Multiplanar, multisequence imaging of the brain and brainstem is performed without IV cont rast. FINDINGS: Diffusion weighted images demonstrate no evidence of a recent infarct or other diffusion abnormality. There a focal confluent areas of T2 hyperintensity in the deep and periventricular white matter with additional involvement in the deniz. The ventricular system and cisternal spaces are normal in size a nd appearance. The brain volume is age appropriate. Midline structures demonstrate normal morphology. The craniocervical junction appears within normal limits. Normal vascular flow voids are present. The visualized sinuses are clear and the globes are i ntact. Nasal septum remains deviated to right of midline. Persistent increased fluid signal inferior left mastoid air cells unchanged from 2019 study. IMPRESSION: No MRI evidence for a recent infarct. [id number] nonspecific white matter changes f avored on the basis of product of chronic small vessel ischemic change in patient of this age.
--- NOTE | 2021-06-28 15:04 | P.PN ---
Subjective Progress Note Date: 06/28/21 Pt is doing well overall. C/o headache, trouble sleeping. MRI pending. 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, 3 minus out of 5 strength lower extremity hip flexor on the left Psych: cooperative, euthymic mood Assessment/plan: Bilateral LE weakness -Admit to inpatient, telemetry -Neurology consult -MRI of the brain is negative for stroke -CT C/T/L spine w and wo contrast ordered, to be followed by MRI if negative -Aspirin, statin -Echo was pending -TSH, A1c, lipid panel reviewed Depression Asthma Anxiety Insomnia Glaucoma -Home medications reviewed and reconciled Patient is a full code Objective - Vital Signs Vital signs: Vital Signs Temp 98.3 F 06/28/21 12:10 Pulse 75 06/28/21 12:10 Resp 16 06/28/21 12:10 BP 155/72 06/28/21 12:10 Pulse Ox 96 06/28/21 12:10 Intake & Output 06/27/21 06/28/21 06/28/21 18:59 06:59 18:59 Intake Total 270 10 500 Balance 270 10 500 Weight 63.049 kg Intake: IV 10 10 20 Invasive Line 1 10 10 20 Oral 260 480 Other: # Voids 1 2 # Bowel Movements 3 - Labs CBC & Chem 7: 06/26/21 10:37 06/26/21 10:37
--- NOTE | 2021-06-28 17:20 | CT ---
EXAMINATION TYPE: CT CervThorLumbar spine w con DATE OF EXAM: 06/28/2021 COMPARISON: 03/07/2011 HISTORY: bilateral leg weakness CT DLP: 935.6 mGycm Automated exposure control for dose reduction was used. CONTRAST: Performed with IV Contrast, patient injected with 100 mL of Isovue 300. Images obtained from the skull base to the S3 vertebra without contrast. The cervical thoracic and lumbar vertebra have normal alignment. There is degenerative disc space randal rowing throughout the cervical spine with spurring of the endplates. There is multilevel cervical fac et arthropathy. There is no evidence of spinal compression fracture. There is some osteopenia. There is moderate narrowing of the L4-5 disc space. There is vacuum disc at L4-5 and L5-S1. There is no cer vical thoracic or lumbar paraspinal mass. The posterior elements are intact. No focal bone destructio n. Sacroiliac joints are intact. I see no bony destructive process. There is some ligamentum flavum t hickening and mild relative spinal stenosis at L4-5. IMPRESSION: Multilevel cervical and lumbar spondylotic changes. No acute bony abnormality. No compression fractur e.
[2021-06-28] MEDS: ATORVASTATIN 20 MG TAB PO SCH (20:31)
[2021-06-28] MEDS: LATANOPROST 0.005% OPHTH DROPS 2.5 ML BTL LEFT EYE SCH (20:31)
[2021-06-28] MEDS: ZOLPIDEM 5 MG TAB PO SCH (20:31)
[2021-06-29] MEDS: SYMBICORT 160-4.5 MCG INHALER INHALATION SCH ×2 (07:43→20:07)
[2021-06-29] MEDS: ASPIRIN 81 MG PO SCH (09:12)
[2021-06-29] MEDS: buPROPion XL 150 MG TAB.ER.24H PO SCH (09:12)
[2021-06-29] MEDS: GABAPENTIN 100 MG CAP PO SCH ×3 (09:12→20:07)
[2021-06-29] MEDS: HEPARIN SODIUM,PORCINE/PF 5,000 UNIT/0.5 ML SYRINGE SQ SCH ×2 (09:12→20:07)
[2021-06-29] MEDS: CHOLECALCIFEROL 25 MCG (1000 IU) TABLET PO SCH (09:12)
[2021-06-29] MEDS: VIT A,C & E-LUTEIN-MINERALS 1 EACH TAB PO SCH (09:12)
[2021-06-29] MEDS: MULTIVITAMINS, THERA 1 EACH TAB PO SCH (09:12)
[2021-06-29 10:50] LABS: C Reactive Protein <0.5 mg/dL (<1.0); Creatine Kinase 33 U/L (30-135)
[2021-06-29] MEDS: ACETAMINOPHEN TAB 325 MG TAB PO PRN ×2 (11:41→17:10)
--- NOTE | 2021-06-29 12:07 | P.PN ---
Subjective Progress Note Date: 06/29/21 The patient is seen at bedside and she continues to have left upper extremity weakness as well bilateral lower extremity weakness (left > right). She denies of any new neurological issues. Objective - Vital Signs Vital signs: Vital Signs Temp 97.8 F 06/29/21 11:42 Pulse 72 06/29/21 11:42 Resp 18 06/29/21 11:42 BP 127/70 06/29/21 11:42 Pulse Ox 96 06/29/21 11:42 Intake & Output 06/28/21 06/29/21 06/29/21 18:59 06:59 18:59 Intake Total 1300 10 120 Balance 1300 10 120 Intake: IV 20 10 Invasive Line 1 20 10 Oral 1280 120 Other: # Voids 2 1 # Bowel Movements 3 - Exam GENERAL: The patient is lying in bed and is in mild acute distress. NEUROLOGICAL: Higher mental function: The patient is awake, alert, oriented to self, place and time. Patient is following commands. No aphasia and no neglect. Cranial nerves: The pupils are round, equal and reactive to light and accommodation. Visual tavares are full to confrontation throughout. Extraocular movement is intact no nystagmus is noted. Facial sensation is normal to touch throughout. The facial strength is normal throughout. Tongue is midline and moved [id number] without any difficulty. No dysarthria is noted. Shoulder shrug is normal bilaterally. Motor: Gait is deferred because of patient's weakness. The strength is bilateral lower extremities are 3-4 (worse on left > right )while left upper is 4+ and right upper is 5/5. Normal tone and bulk. Cerebellum: Normal finger to nose bilaterally. Sensation: Normal to touch throughout. Reflexes (right/left):1+ throughout. Plantars are downgoing bilaterally. WORK-UP: HbA1c: 5.4 Lipid panel: TG 67, Cholestrol 198, LDL 91 and HDL 92 TSH: 0.058 but free T4: 0.94 CT of the head is reported as no acute intracranial hemorrhage or mass effect. I personally reviewed the CT of the head and the seems the patient has old lacunar infarct in the left basal ganglia 1 in the external capsule and the other one in the left thalamus. CT angiography of the head and neck is negative. 2D echo: Normal LV size and systolic function with mild concentric LVH. Mild to moderate aortic stenosis. Moderate left atrial dilation. MRI Brain: It is reported as no MRI evidence for a recent infarct. Mild to moderate nonspecific white matter changes favored on the basis of product of chronic small vessel ischemic change in patient of this age. I personally reviewed the MRI and agree with report. CT cervicalthoracic/lumbar: It is reported as multilevel cervical and lumbar spondylotic changes. No acute bony abnormality. No compression fracture. - Labs CBC & Chem 7: 06/26/21 10:37 06/26/21 10:37 Assessment and Plan Assessment: Acute paresthesia of left side and weakness of left upper extremity and bilateral lower (on examination weakness of left leg > right). Not stroke (MRI Brain is negative). Rule out any cervical or lumbar spondylosis Old lacunar stroke in the left basal ganglia likely due to small vessel disease Plan: Continue aspirin 81 mg aContinue Lipitor 20 mg daily at bedtime Ordered MRI Cervical and Lumbar. Primary team consulted Orthopedic team. Every 4 hours neuro checks Continue cardiac monitoring Consulted PT and OT We'll defer the rest of the medical management to primary team For DVT prophylaxis subcu heparin every 12 hours The plan is discussed with the patient and primary team. Roly Renee M.D. Neuro-hospitalist Time with Patient: Less than 30
[2021-06-29] MEDS: ALPRAZolam 0.5 MG TAB PO PRN ×2 (13:50→20:07)
--- NOTE | 2021-06-29 14:44 | P.CNOR ---
History of Present Illness - [facility] Consult date: 06/29/21 Consult reason: other (Upper extremity paresthesias, bilateral lower extremity weakness) History of present illness: Patient is an 80-year-old female who presents to [facility] on 06/26/2021 with strokelike symptoms. Patient states that she is at [employer] and later that day she had developed paresthesias on the left side, this including the upper extremity, lower extremity and face. She was brought to the emergency room for further evaluation, stroke protocol was started, the current workup has shown acute evidence of a CVA. She is being followed by internal medicine and neurology at this time. Our orthopedic team was consulted due to the lower extremity weakness. CT scans of both the cervical, thoracic and lumbar spine have been done. Patient was evaluated today at bedside, the patient's daughter was present. Patient states that she does have history of neck and low back pain. She had seen a pain management doctor in the past, she has received previous injections to her lumb ar spine that provided minimal relief. She's never been evaluated by an orthopedic spine surgeon. She currently takes no narcotics or muscle relaxers for her pain. She also has history of a left shoulder procedure and left ankle. She states that she has some chronic discomfort in that left shoulder and deals with chronic neck and low back pain. Patient does live in an assisted living home. She normally ambulates with no assistive devices. She denies any recent trauma, this including falls. She denies any recent changes to medications. Patient prior to this past weekend had not dealt with paresthesias of the upper extremities. She states that she does have a history of neuropathy which she follows a neurologist for the outpatient setting, this mainly affects her feet. She denies any loss of bowel or bladder control. She denies any numbness or tingling to the genital or perineal region. Prior to this last weekend symptoms, she denies any chronic weakness to the upper extremities. She states over the past few months she has felt a little bit weaker in the lower extremities, she notices this mainly with walking. Currently the patient denies any headaches, lightheadedness, chest pain, shortness of breath, abdominal discomfort, nausea vomiting, fever or chills. Review of Systems Constitutional: Reports as per HPI Past Medical History Past Medical History: Asthma, COPD, Eye Disorder Additional Past Medical History / Comment(s): INCREASED PRESSURE RT EYE. HAD SOME RECTAL BLEEDING ABOUT 1 MONTH AGO, CHRONIC CONSTIPATON History of Any Multi-Drug Resistant Organisms: None Reported Past Surgical History: Orthopedic Surgery Additional Past Surgical History / Comment(s): RT SHOULDER SX. COLONOSCOPY. RT EYE MACULAR FOLD SX Past Anesthesia/Blood Transfusion Reactions: No Reported Reaction Past Psychological History: Anxiety Smoking Status: Never smoker Past Alcohol Use History: None Reported Past Drug Use History: None Reported - Past Family History Mother Family Medical History: No Reported History Medications and Allergies Home Medications Medication Instructions Recorded Confirmed Type ALPRAZolam [Xanax] 0.5 mg PO TID PRN 01/06/15 06/26/21 History Albuterol Sulfate [Ventolin HFA] 2 puff INHALATION RT-QID PRN 02/02/19 06/26/21 History Budesonide/Formoterol Fumarate 2 puff INHALATION RT-BID 02/02/19 06/26/21 History [Symbicort 160-4.5 Mcg Inhaler] Vit C/E/Zn/Coppr/Lutein/Zeaxan 1 cap PO BID 02/02/19 06/26/21 History [Preservision Areds 2 Softgel] Zolpidem Tartrate [Zolpidem 12.5 mg PO HS 02/02/19 06/26/21 History Tartrate ER] Cholecalciferol [Vitamin D3 (25 25 mcg PO DAILY 06/26/21 06/26/21 History Mcg = 1000 Iu)] Latanoprost/Pf [Latanoprost 0.005% 1 drop LEFT EYE HS 06/26/21 06/26/21 History Eye Drop] Multivitamins, Thera [Multivitamin 1 tab PO DAILY 06/26/21 06/26/21 History (formulary)] Vitamin B Complex 1 cap PO DAILY 06/26/21 06/26/21 History buPROPion XL [Wellbutrin XL] 150 mg PO DAILY 06/26/21 06/26/21 History Allergies Allergy/AdvReac Type Severity Reaction Status Date / Time egg Allergy Anaphylaxis Verified 06/26/21 15:09 Physical Examination Gen: AOx3, NAD VSS stable at this time Integument: No open lesions or sores visualized throughout the cervical, thoracic or lumbar spine. There are no obvious areas of erythema Palpation: She demonstrates no significant tenderness to the midline and paraspinal region of the cervical, thoracic or lumbar spine ROM: Full range of motion in all major muscle groups of the bilateral upper extremities Range of motion is intact in all major muscle groups of the bilateral lower extremities, she does have a little bit of difficulty with hip flexion on both the right and left side Sensory Exam: Senory exam to light touch is intact C5-T1, she does admit to a dull feeling in the fingertips the bilateral upper extremity Senosry exam to light touch is intact L2-S1, she admits to a dull feeling in the bilateral feet Motor: 4+/5 strength appreciated in the bilateral upper extremities with shoulder elevation, shoulder abduction, elbow extension, elbow flexion, wrist extension, 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 flexion, 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 Right lower extremity: 4/5 strength appreciated with hip flexion, 5/5 strength appreciated with knee flexion, knee extension, plantar flexion, dorsiflexion, EHL, FHL Left lower extremity: 4-/5 strength appreciated with hip flexion, 4/5 strength appreciated with knee extension, knee flexion, 5/5 strength appreciated with plantar flexion, dorsiflexion, EHL, FHL Reflexes: Negative Miya's bilaterally Negative Babinski bilaterally Negative clonus bilaterally Special Test: Logroll maneuver of the bilateral lower extremities reproduces no groin pain Negative straight leg raise bilateral lower extremities Results - Labs Labs: H & H 06/26/21 Range/Units 10:37 Hgb 13.3 (11.4-16.0) gm/dL Hct 39.9 (34.0-46.0) % Coagulation 06/26/21 Range/Units 10:37 INR 1.0 (<1.2) Result Diagrams: 06/26/21 10:37 06/26/21 10:37 Assessment and Plan Assessment: Neck pain Multilevel cervical spondylosis Low back pain Multilevel lumbar spondylosis Bilateral upper extremity paresthesias Bilateral lower extremity paresthesias Lower extremity weakness Other medical comorbidities Plan: Imaging: Images and report were reviewed of the CT of the cervical, thoracic and lumbar spine. No acute fractures or dislocations were appreciated. Multilevel spondylosis of both the cervical and lumbar spine. Neurology has ordered an MRI of both cervical and lumbar spine Plan: I was able to discuss the case, including both physical exam findings and imaging studies my attending Dr. Page. Patient is demonstrating no acute neuropathic signs. No emergent orthopedic surgical intervention is recommended at this time Await MRI results of the cervical and lumbar spine for review Stroke workup has been negative for acute event Recommend weight-bear as tolerated with walker PT/OT evaluation Pain control, would recommend Medrol Dosepak at discharge Other medical research scientist and recommendations Further recommendations to follow Time with Patient: Less than 30
--- NOTE | 2021-06-29 16:19 | MR ---
EXAMINATION TYPE: MR cspine/lspine wo/w con DATE OF EXAM: 06/29/2021 COMPARISON: [facility] CT 06/28/2021 HISTORY: Left sided paresthesia and bilateral leg weakness TECHNIQUE: Multiplanar, multisequence images of the lumbar spine is performed without and with IV contrast, util izing 6 mL intravenous Gadavist FINDINGS: Cervical spine MRI: There is multilevel spondylosis. Loss of disc height and signal is present interv ertebral levels, there is endplate discogenic marrow signal change. Cervical vertebral bodies show pr eserved height. Loss of disc height and signal is present at C3-4, C4-5, C5-6 and C6-7. C2-3: No significant spinal stenosis or foraminal encroachment. There is some facet arthropathy tierney e present. No disc herniation. C3-4: Posterior broad-based disc bulge causes mild anterior mass effect on the thecal sac. There is s ome uncovertebral joint hypertrophy but no significant spinal stenosis, some mild left-sided foramina l encroachment is present. Facet arthropathy changes are present. C4-5: Circumferential posterior extension endplate disc complex causes minimal anterior mass effect o n the thecal sac. No significant foraminal encroachment or spinal stenosis C5-6: Posterior extension endplate disc complex causes anterior mass effect on the thecal sac and pos sibly cord contact, mild spinal stenosis. There is bilateral foraminal encroachment due to uncoverteb ral joint hypertrophy and facet arthropathy. C6-7: Posterior extension endplate disc complex causes anterior mass effect on the thecal sac. There is some left-sided foraminal encroachment due to uncovertebral joint hypertrophy. No significant spin al stenosis C7-T1: No significant spinal stenosis, foraminal encroachment, or sizable disc herniation. There is no abnormal enhancement on contrast administration. There may be a thoracic spinal curvature . IMPRESSION: Degenerative disc disease, multilevel foraminal encroachment. Facet arthropathy. Lumbar spine MRI: Anterolisthesis grade 1 at L4-5. There is multilevel spondylosis with endplate disc ogenic marrow signal change. Loss of disc height signal is greatest at L4-5, L5-S1, there is associat ed vacuum phenomenon. No significant spinal stenosis. Sagittal images of the lumbar spine show vertebral body heights to be normal. The conus is at L1 show s an unremarkable appearance. L5-S1: There is facet arthropathy change. No stones significant disc herniation, there is posterior e xtension endplate disc complex causing mild anterior mass effect on the thecal sac. Circumferential e xtension endplate disc complex encroaches on the inferior aspect of the foramina. L4-5: Facet arthropathy with hypertrophy ligamentum flavum causes posterior lateral mass effect on th e thecal sac. Posterior broad-based disc bulge causes mild anterior mass effect on the thecal sac. Ci rcumferential extension endplate disc complex encroaches on the inferior aspect of the foramina on th e right, foramen on the left is somewhat more compromised. L3-4: Posterior broad-based disc bulge causes mild anterior mass effect on the thecal sac. Facet arth ropathy hypertrophy ligamentum flavum causes posterior lateral mass effect on the thecal sac. No sign ificant foraminal encroachment. L2-3: Minimal posterior disc bulge is present, no significant foraminal encroachment. L1-2: Circumferential disc bulge causes only slight anterior mass effect on the thecal sac. No signif icant foraminal encroachment. Parapelvic cysts are noted bilaterally within the kidneys. There are some small cortical cysts also p resent on the right. No abnormal enhancement on contrast administration. IMPRESSION: Degenerative disc disease and facet arthropathy. IMPRESSION: Negative MRI of the lumbar spine.
[2021-06-29] MEDS: SODIUM CHLORIDE 0.9% 1,000 ML IV SCH (18:47)
[2021-06-29] MEDS: ATORVASTATIN 20 MG TAB PO SCH (20:07)
[2021-06-29] MEDS: LATANOPROST 0.005% OPHTH DROPS 2.5 ML BTL LEFT EYE SCH (20:07)
[2021-06-29] MEDS: ZOLPIDEM 5 MG TAB PO SCH (20:07)
--- NOTE | 2021-06-29 20:22 | P.PN ---
Subjective Progress Note Date: 06/29/21 (delayed charting seen at 0920) Principal diagnosis: weakness Patient is a 80-year-old female with a hx of depression, asthma, anxiety, and insomina who follow with Dr. Martinez of neurology who presetned with complaints of left sided weaknes and numbness. On presentation vital signs within normal limits other than a systolic blood pressure of 183. Initial laboratory was rather unremarkable. She underwent a head CT which was negative for any signs of bleeding. He Had not which did not show any significant abnormalities. She was admitted for possible TIA versus CVA. She was started on aspirin. She underwent MRI of the brain which showed no acute infarct. Echocardiogram was performed which demonstrated moderate aortic stenosis with preserved ejection fraction of 55-60%. She will underwent a CT cervical thoracic and lumbar spine which showed multilevel cervical and lumbar spondylolytic changes. She was seen by physical therapy and was able to ambulate with arms held out for balance and short choppy tentative steps but was steady without any loss of balance. There is concern for possible spinal etiology. Orthopedic spine was consulted. She underwent MRI of the cervical and lumbar spine which demonstrated multiple level facet arthropathy with foraminal encroachment and done a degenerative disc disease with several aspects of mild mass effect on the thecal sac. Patient seen and examined at bedside. She is very anxious and frustrated that she has not been told that reason. She continues to have lower extremity weakness which she states the right started during her hospital stay. I discussed with her the the results of her CAT scan and MRI. Plan for evaluation by orthopedic spine surgery and likely need for physical therapy and steroids. General: non toxic, no distress, appears at stated age Derm: warm, dry Head: atraumatic, normocephalic, symmetric Eyes: EOMI, no lid lag, anicteric sclera Mouth: no lip lesion, mucus membranes moist Cardiovascular: S1S2 reg, no murmur, positive posterior tibial pulse bilateral, Lungs: CTA bilateral, no rhonchi, no rales , no accessory muscle use Abdominal: soft, nontender to palpation, no guarding, no appreciable organomegaly Ext: no gross muscle atrophy, no edema, no contractures Neuro: CN II-XI grossly intact, bilateral hip flexor weakness with muscle strength 5 out of 5 on plantar dose to flexion, mild weakness with supination and pronation of the left upper extremity. Light touch appears intact all 4 extremities. Psych: Alert, oriented, appropriate affect Assessment/plan: Bilateral lower extremity weakness -Neurology recommendations -Orthospine recommendations -Await MRI review by orthospine -Check ESR, CRP, and pain, and CK-all are negative PT/OT evaluation: Recommendations are home health Asthma -Continue with bronchodilators Depression/Anxiety/Insomnia - Continue with Wellbutrin, Ambien, and Xanax as needed -Continue outpatient follow-up Glaucoma -Home medications reviewed and reconciled Anticipate home in a.m. Objective - Vital Signs Vital signs: Vital Signs Temp 98 F 06/29/21 19:37 Pulse 77 06/29/21 19:37 Resp 20 06/29/21 19:37 BP 103/52 06/29/21 19:37 Pulse Ox 93 L 06/29/21 19:37 Intake & Output 06/29/21 06/29/21 06/30/21 06:59 18:59 06:59 Intake Total 10 910 Balance 10 910 Intake: IV 10 Invasive Line 1 10 Oral 910 Other: # Voids 1 3 - Labs CBC & Chem 7: 06/26/21 10:37 06/26/21 10:37 Labs: Abnormal Lab Results - Last 24 Hours (Table) 06/26/21 Range/Units 10:37 Vitamin B12 1037.0 H (200.0-944.0) pg/mL
[2021-06-30] MEDS: VIT A,C & E-LUTEIN-MINERALS 1 EACH TAB PO SCH ×2 (00:12→08:38)
[2021-06-30 03:47] VITALS: RESP 18
[2021-06-30] MEDS: ACETAMINOPHEN TAB 325 MG TAB PO PRN (06:19)
[2021-06-30] MEDS: SYMBICORT 160-4.5 MCG INHALER INHALATION SCH (07:50)
[2021-06-30 08:38] VITALS: BP 125/69; PULSE 69; TEMP 98.7
[2021-06-30] MEDS: MULTIVITAMINS, THERA 1 EACH TAB PO SCH (08:38)
[2021-06-30] MEDS: buPROPion XL 150 MG TAB.ER.24H PO SCH (08:38)
[2021-06-30] MEDS: ASPIRIN 81 MG PO SCH (08:38)
[2021-06-30] MEDS: GABAPENTIN 100 MG CAP PO SCH (08:38)
[2021-06-30] MEDS: CHOLECALCIFEROL 25 MCG (1000 IU) TABLET PO SCH (08:38)
[2021-06-30] MEDS ORDERED: methylPREDNISolone 4 MG TAB TAPER PO SCH (09:00)
[2021-06-30] MEDS: HEPARIN SODIUM,PORCINE/PF 5,000 UNIT/0.5 ML SYRINGE SQ SCH (10:22)
--- NOTE | 2021-06-30 10:45 | XR ---
EXAMINATION TYPE: XR chest 2V DATE OF EXAM: 06/30/2021 COMPARISON: NONE HISTORY: Shortness of breath TECHNIQUE: Frontal and lateral views of the chest are obtained. FINDINGS: There is no focal air space opacity, pleural effusion, or pneumothorax seen. The cardiac silhouette size is within normal limits. Prominent lung volumes suggest underlying COPD, there is a c alcified granuloma in the right midlung, patient is rotated, there are overlying leads The osseous s tructures are intact. IMPRESSION: No acute cardiopulmonary process.
--- NOTE | 2021-06-30 11:30 | P.PN ---
Subjective Progress Note Date: 06/30/21 Principal diagnosis: Cervical stenosis; lumbar spondylosis Patient was seen at bedside this morning resting comfortably lying in semirecumbent position. Patient says she does have lower extremity weakness in both legs. Patient also mentions she is having some neuropathy particularly in the left lower extremity in her foot at this time. Patient says she does have a history of neuropathy for which she sees a physician regularly for. Patient denies any weakness in the upper extremities. Patient does say she does have a history of neck pain in lower back pain. She says in the past she has had injections in the lumbar spine. Patient denies any increasing chest pain, fev er, shortness breath, nausea, vomiting, change in vision, loss of bowel/bladder control. Objective - Vital Signs Vital signs: Vital Signs Temp 98.7 F 06/30/21 08:37 Pulse 69 06/30/21 08:37 Resp 18 06/30/21 08:37 BP 125/69 06/30/21 08:37 Pulse Ox 98 06/30/21 08:37 Intake & Output 06/29/21 06/30/21 06/30/21 18:59 06:59 18:59 Intake Total 910 0 Balance 910 0 Intake: Oral 910 0 Other: Voiding Method Toilet Toilet # Voids 3 1 - Exam Negative for any open fractures, significant ecchymosis/erythema, nodules. Sensation is equal, symmetric, bilaterally intact throughout the upper and lower extremities. Patient has full range of motion bilateral upper extremities. Patient does have some limited range of motion in hip flexion bilaterally. Patient has full range of motion throughout the rest of the lower extremities. 4+/5 in all major motor groups in the upper extremities bilaterally. 4-/5 in hip flexion bilaterally extremities. 4+/5 in all other major motor groups in the bilateral lower extremities. Radial pulses intact, 2+ bilaterally. Cap refill under 3 seconds in digits of left extremities. Negative Homans bilaterally; negative Miya's bilaterally; negative clonus bilaterally - Labs CBC & Chem 7: 06/26/21 10:37 06/26/21 10:37 Labs: Abnormal Lab Results - Last 24 Hours (Table) 06/26/21 Range/Units 10:37 Vitamin B12 1037.0 H (200.0-944.0) pg/mL Assessment and Plan Assessment: -Cervical stenosis, C5-C7, moderate - Lumbar spondylosis Plan: 1. Cervical stenosis, C5-C7, moderate; lumbar spondylosis - patient seen at bedside this morning. I did review findings of the cervical and lumbar MRIs with my attending, Dr. Page and did discuss the findings of MRI with the patient at bedside. Patient's symptoms of acute bilateral lower extremity weakness likely not stemming from lumbar spine. At this time we do not recommend any emergent/urgent orthopedic surgical intervention. We do recommend conservative measures with physical therapy and steroids. Patient is stable from an orthopedic standpoint. We do recommend patient to follow-up in the o utpatient orthopedic setting. At this time orthopedics is signing off. Please do not hesitate to contact us for any further questions 2. Appreciate medical and neuro management 3. Pain management - gabapentin; Tylenol 4. DVT prophylaxis - aspirin; heparin 5. GI prophylaxis 6. PT/OT Time with Patient: Less than 30
--- NOTE | 2021-06-30 11:53 | P.PN ---
Subjective Progress Note Date: 06/30/21 The patient is seen at bedside and feels about the same. Continues to have weakness on left side and right leg. Objective - Vital Signs Vital signs: Vital Signs Temp 98.7 F 06/30/21 08:37 Pulse 69 06/30/21 08:37 Resp 18 06/30/21 08:37 BP 125/69 06/30/21 08:37 Pulse Ox 98 06/30/21 08:37 Intake & Output 06/29/21 06/30/21 06/30/21 18:59 06:59 18:59 Intake Total 910 0 Balance 910 0 Intake: Oral 910 0 Other: Voiding Method Toilet Toilet # Voids 3 1 - Exam GENERAL: The patient is lying in bed and is in mild acute distress. NEUROLOGICAL: Higher mental function: The patient is awake, alert, oriented to self, place and time. Patient is following commands. No aphasia and no neglect. Cranial nerves: The pupils are round, equal and reactive to light and accommodation. Visual tavares are full to confrontation throughout. Extraocular movement is intact no nystagmus is noted. Facial sensation is normal to touch throughout. The facial strength is normal throughout. Tongue is midline and moved [id number] without any difficulty. No dysarthria is noted. Shoulder shrug is normal bilaterally. Motor: Gait is deferred because of patient's weakness. The strength is bilateral lower extremities are 3-4 (worse on left > right )while left upper is 4+ and right upper is 5/5. Normal tone and bulk. Cerebellum: Normal finger to nose bilaterally. Sensation: Normal to touch throughout. Reflexes (right/left):1+ throughout. Plantars are downgoing bilaterally. WORK-UP: HbA1c: 5.4 Lipid panel: TG 67, Cholestrol 198, LDL 91 and HDL 92 TSH: 0.058 but free T4: 0.94 CT of the head is reported as no acute intracranial hemorrhage or mass effect. I personally reviewed the CT of the head and the seems the patient has old lacunar infarct in the left basal ganglia 1 in the external capsule and the other one in the left thalamus. CT angiography of the head and neck is negative. 2D echo: Normal LV size and systolic function with mild concentric LVH. Mild to moderate aortic stenosis. Moderate left atrial dilation. MRI Brain: It is reported as no MRI evidence for a recent infarct. Mild to moderate nonspecific white matter changes favored on the basis of product of chronic small vessel ischemic change in patient of this age. I personally reviewed the MRI and agree with report. CT cervicalthoracic/lumbar: It is reported as multilevel cervical and lumbar spondylotic changes. No acute bony abnormality. No compression fracture. MRI Cervical: is reported as degenerative disc disease and facet arthropathy. I personally reviewed MRI and felt there is moderate to severe stenosis over C5- C7. MRI Lumbar is reported as negative. - Labs CBC & Chem 7: 06/26/21 10:37 06/26/21 10:37 Labs: Abnormal Lab Results - Last 24 Hours (Table) 06/26/21 Range/Units 10:37 Vitamin B12 1037.0 H (200.0-944.0) pg/mL Assessment and Plan Assessment: Acute paresthesia of left side and weakness of left upper extremity and bilateral lower (on examination weakness of left leg > right). Not stroke (MRI Brain is negative). I feel patient has moderate to severe cervical spondylosis at C5-C7. Cervical spondylosis. Old lacunar stroke in the left basal ganglia likely due to small vessel disease Plan: Continue aspirin 81 mg and Continue Lipitor 20 mg daily at bedtime MRI Cervical: is reported as degenerative disc disease and facet arthropathy. I personally reviewed MRI and felt there is moderate to severe stenosis over C5- C7. Orthopedic team is consulted. They recommend conservative management. Every 4 hours neuro checks Continue cardiac monitoring Consulted PT and OT We'll defer the rest of the medical management to primary team For DVT prophylaxis subcu heparin every 12 hours The plan is discussed with the patient and primary team. There is no further neurological work-up. Please notify neurology team if any further concerns. Roly Renee M.D. Neuro-hospitalist Time with Patient: Less than 30
--- NOTE | 2021-06-30 17:15 | P.DS ---
Providers Date of admission: 06/26/21 15:45 Expected date of discharge: 06/30/21 Attending physician: Brii Urias MD Consults: 06/26/21 15:46 Consult Physician Routine Consulting Provider: Roly Renee Consult Reason/Comments: cva Do you want consulting provider notified?: Yes 06/29/21 09:24 Consult Physician Routine Consulting Provider: Sebastian Page Consult Reason/Comments: bilateral lower extremity weakness Do you want consulting provider notified?: Yes Primary care physician: Raheel Renee Hospital Course: Discharge Diagnosis: Cervical stenosis resulting in weakness and paresthesias Asthma without exacerbation Depression/Anxiety/Insomnia Glaucoma Hospital Course: Patient is a 80-year-old female with a hx of depression, asthma, anxiety, and insomina who follow with Dr. Martinez of neurology who presetned with complaints of left sided weaknes and numbness. On presentation vital signs within normal limits other than a systolic blood pressure of 183. Initial laboratory was rather unremarkable. She underwent a head CT which was negative for any signs of bleeding. He Had not which did not show any significant abnormalities. She was admitted for possible TIA versus CVA. She was started on aspirin. She underwent MRI of the brain which showed no acute infarct. Echocardiogram was p erformed which demonstrated moderate aortic stenosis with preserved ejection fraction of 55-60%. She will underwent a CT cervical thoracic and lumbar spine which showed multilevel cervical and lumbar spondylolytic changes. She was seen by physical therapy and was able to ambulate with arms held out for balance and short choppy tentative steps but was steady without any loss of balance. There is concern for possible spinal etiology. Orthopedic spine was consulted. She underwent MRI of the cervical and lumbar spine which demonstrated multiple level facet arthropathy with foraminal encroachment and done a degenerative disc disease with several levels of mild mass effect on the thecal sac. Orthospine ultimately recommended conservative management with steroids and physical therapy. ESR, CRP, and CK were unrevealing. She did well with physical therapy. She was determined stable for discharge home with home health. She'll complete a Medrol Dosepak. She'll follow-up with Dr. Reneeand Dr. Page. Patient seen and examined at bedside. Still feeling slightly weak but better today. Vital signs reviewed and stable. General: non toxic, no distress, appears at stated age Derm: warm, dry Head: atraumatic, normocephalic, symmetric Eyes: EOMI, no lid lag, anicteric sclera Mouth: no lip lesion, mucus membranes moist Cardiovascular: S1S2 reg, no murmur, positive posterior tibial pulse bilateral, Lungs: CTA bilateral, no rhonchi, no rales , no accessory muscle use Abdominal: soft, nontender to palpation, no guarding, no appreciable organomegaly Ext: no gross muscle atrophy, no edema, no contractures Neuro: CN II-XI grossly intact, no focal neuro deficits Psych: Alert, oriented, appropriate affect A total of 35 minutes of time were spent preparing this complex discharge summary . Patient Condition at Discharge: Fair Plan - Discharge Summary Discharge Rx Participant: No New Discharge Prescriptions: New Gabapentin [Neurontin] 100 mg PO TID #90 cap methylPREDNISolone Dose Pack [Medrol Dose Pack] 4 mg PO DIRECTED #21 tab Continue ALPRAZolam [Xanax] 0.5 mg PO TID PRN PRN Reason: Anxiety Albuterol Sulfate [Ventolin HFA] 2 puff INHALATION RT-QID PRN PRN Reason: Shortness Of Breath Budesonide/Formoterol Fumarate [Symbicort 160-4.5 Mcg Inhaler] 2 puff INHALATION RT-BID Vit C/E/Zn/Coppr/Lutein/Zeaxan [Preservision Areds 2 Softgel] 1 cap PO BID Zolpidem Tartrate [Zolpidem Tartrate ER] 12.5 mg PO HS Latanoprost/Pf [Latanoprost 0.005% Eye Drop] 1 drop LEFT EYE HS Cholecalciferol [Vitamin D3 (25 Mcg = 1000 Iu)] 25 mcg PO DAILY Vitamin B Complex 1 cap PO DAILY Multivitamins, Thera [Multivitamin (formulary)] 1 tab PO DAILY buPROPion XL [Wellbutrin XL] 150 mg PO DAILY Discharge Medication List ALPRAZolam [Xanax] 0.5 mg PO TID PRN 01/06/15 [History] Albuterol Sulfate [Ventolin HFA] 2 puff INHALATION RT-QID PRN 02/02/19 [History] Budesonide/Formoterol Fumarate [Symbicort 160-4.5 Mcg Inhaler] 2 puff INHALATION RT-BID 02/02/19 [History] Vit C/E/Zn/Coppr/Lutein/Zeaxan [Preservision Areds 2 Softgel] 1 cap PO BID 02/02/19 [History] Zolpidem Tartrate [Zolpidem Tartrate ER] 12.5 mg PO HS 02/02/19 [History] Cholecalciferol [Vitamin D3 (25 Mcg = 1000 Iu)] 25 mcg PO DAILY 06/26/21 [History] Latanoprost/Pf [Latanoprost 0.005% Eye Drop] 1 drop LEFT EYE HS 06/26/21 [History] Multivitamins, Thera [Multivitamin (formulary)] 1 tab PO DAILY 06/26/21 [History] Vitamin B Complex 1 cap PO DAILY 06/26/21 [History] buPROPion XL [Wellbutrin XL] 150 mg PO DAILY 06/26/21 [History] Gabapentin [Neurontin] 100 mg PO TID #90 cap 06/30/21 [Rx] methylPREDNISolone Dose Pack [Medrol Dose Pack] 4 mg PO DIRECTED #21 tab 06/30/21 [Rx] Follow up Appointment(s)/Referral(s): Raheel Renee DO [Primary Care Provider] - 07/27/21 1:45 pm Sebastian Page DO [Doctor of Osteopathic Medicine] - 07/14/21 10:40 am [facility] Visiting Nurse, [NON-STAFF] - Patient Instructions/Handouts: Cervical Spinal Stenosis (ED) Activity/Diet/Wound Care/Special Instructions: Activity: as tolerated with walker Diet: regular Special Instructions: Take medications as directed Keep all follow-up appointments Thank you for trusting us with your care, we wish you well on your journey to better health. Discharge Disposition: HOME SELF-CARE
== END 2021-06-30 13:37 | disposition home or self-care (01) | DRG 552 ==
LOC: EC 09:26 → 3SCARD 15:45
PROVIDERS: ADMIT Internal Medicine; ATTEND Internal Medicine
DX: M48.02 Spinal stenosis, cervical region (principal); M47.812 Spondylosis without myelopathy or radiculopathy, cervical region; M47.816 Spondylosis without myelopathy or radiculopathy, lumbar region; M50.30 Other cervical disc degeneration, unspecified cervical region; I73.9 Peripheral vascular disease, unspecified; R20.2 Paresthesia of skin; R29.724 NIHSS score 24; K59.09 Other constipation; J44.9 Chronic obstructive pulmonary disease, unspecified; G89.29 Other chronic pain; G62.9 Polyneuropathy, unspecified; G47.00 Insomnia, unspecified; F41.9 Anxiety disorder, unspecified; F32.A Depression, unspecified; H40.9 Unspecified glaucoma; I35.0 Nonrheumatic aortic (valve) stenosis; Z79.51 Long term (current) use of inhaled steroids; Z79.899 Other long term (current) drug therapy; Z86.73 Personal history of transient ischemic attack (TIA), and cerebral infarction without residual deficits; Z98.890 Other specified postprocedural states; Z87.19 Personal history of other diseases of the digestive system; Z91.012 Allergy to eggs
CPT/HCPCS: 36415; 70450; 70496; 70498; 70551; 71046; 72126; 72129; 72132; 72156; 72158; 80053; 80061; 82085; 82306; 82550; 82607; 83036; 83735; 84439; 84443; 85025; 85610; 85652; 85730; 86038; 86140; 93306; 94640; 99285